=== PATIENT | male | born 1945 | race Caucasian/White ===

== ENCOUNTER 2021-07-30 21:39 | Emergency (ER) | payer BC ==
[~2021-07-30] VITALS: Ht 180.3 cm; Wt 79.4 kg
[~2021-07-30 21:39] MED LIST: EYE DROPS EACHEYE
--- NOTE | 2021-07-30 22:50 | NUR ---
PATIENT WAS MSE BY DR SOTO IN ROOM 03A. ANKITA A & O X4.
[2021-07-30 23:07] VITALS: BP 152/77
--- NOTE | 2021-07-30 23:08 | NUR ---
Patient discharged to home in stable condition. Written and verbal after care instructions given. Patient verbalizes understanding of instructions. Stressed follow up or return to ER for worsening s/s.
== END 2021-07-30 23:09 | disposition home or self-care (01) ==
LOC: ER 21:41
DX: H10.212 Acute toxic conjunctivitis, left eye (principal); H40.9 Unspecified glaucoma; H54.61 Unqualified visual loss, right eye, normal vision left eye; Z91.010 Allergy to peanuts; Z91.048 Other nonmedicinal substance allergy status; R03.0 Elevated blood-pressure reading, without diagnosis of hypertension
CPT/HCPCS: A4663